=== PATIENT | female | born 1970 ===

== ENCOUNTER 2018-06-12 17:59 | Emergency (ER) | payer SELFPAY ==
--- NOTE | 2018-06-12 19:52 | C.PDOC ---
History Of Present Illness 47 y/o female presents to ED complaining of fever, chills, and productive cough x1 week. Patient states she also has occasional body aches and nasal congestion. Otherwise she denies sore throat, ear pain, abdominal pain, nausea, vomiting, diarrhea, dysuria, or sick contacts. Time Seen by Provider: 06/12/18 18:06 Chief Complaint (Nursing): Cough, Cold, Congestion History Per: Patient History/Exam Limitations: no limitations Onset/Duration Of Symptoms: Days Current Symptoms Are (Timing): Still Present Past Medical History Reviewed: Historical Data, Nursing Documentation, Vital Signs Vital Signs: Last Vital Signs Temp 102.6 F H 06/12/18 18:11 Pulse 112 H 06/12/18 18:11 Resp 18 06/12/18 18:11 BP 123/76 06/12/18 18:11 Pulse Ox 97 06/12/18 18:11 Family History: States: No Known Family Hx - Social History Hx Alcohol Use: No Hx Substance Use: No - Immunization History Hx Tetanus Toxoid Vaccination: No Hx Influenza Vaccination: No Hx Pneumococcal Vaccination: No Review Of Systems Constitutional: Positive for: Fever, Chills, Other (Body aches) ENT: Positive for: Nose Congestion. Negative for: Ear Pain, Throat Pain Respiratory: Positive for: Cough (productive) Gastrointestinal: Negative for: Nausea, Vomiting, Abdominal Pain, Diarrhea Genitourinary: Negative for: Dysuria Physical Exam - Physical Exam Appears: Non-toxic, Other (Uncomfortable) Skin: Warm, Dry Head: Atraumatic, Normacephalic Eye(s): bilateral: Normal Inspection Ear(s): Bilateral: Normal Oral Mucosa: Moist Throat: Normal, No Erythema, No Exudate Neck: Supple Chest: Symmetrical Cardiovascular: Rhythm Regular (tachycardic), No Murmur Respiratory: Normal Breath Sounds, No Rales, No Rhonchi, No Wheezing, Other (Coughs occasionally) Gastrointestinal/Abdominal: Soft, No Tenderness Extremity: Bilateral: Atraumatic, Normal ROM ED Course And Treatment O2 Sat by Pulse Oximetry: 97 (RA) Pulse Ox Interpretation: Normal Progress Note: Urine POC and chest x-ray ordered. Patient was given motrin and was swabbed for flu that was negative. CXR showed infiltrate on right base, so gave her doryx. Patient will be discharged home and was instructed to follow up with her PMD in 1-2 days for further evaluation. Disposition Counseled Patient/Family Regarding: Studies Performed, Diagnosis, Need For Followup, Rx Given - Disposition Referrals: [facility] [Outside] Disposition: HOME/ ROUTINE Disposition Time: 19:50 Condition: STABLE Additional Instructions: FOLLOW UP WITH YOUR DOCTOR/CLINIC IN 1-2 DAYS USE MEDICATIONS DIRECTED DRINK PLENTY OF FLUIDS AND GET REST RETURN TO ER IF YOUR SYMPTOMS BECOME WORSE SEGUIR CON ONEILL MDICO / CLNICA EN 1-2 LOZOYA UTILICE MEDICAMENTOS EAGLE SE DIRIGE JUANA MUCHOS FLUIDOS Y DESCANSE REGRESE A ER SI VICTOR HUGO SNTOMAS SE HACEN PEOR Prescriptions: Benzonatate [Tessalon Perles] 100 mg PO BID PRN #15 sgl PRN Reason: Cough Doxycycline Monohydrate 100 mg PO BID #14 tablet Ibuprofen [Motrin Tab] 600 mg PO Q6 PRN #30 tab PRN Reason: fever/pain Instructions: Community-Acquired Pneumonia, Adult (DC) Forms: [employer] (Turkmen), Work Excuse Print Language: TUVALUAN - Clinical Impression Clinical Impression: Pneumonia - Scribe Statement The provider has reviewed the documentation as recorded by the Raoul Guaman Provider Attestation: All medical record entries made by the Mariyaibstanley were at my direction and personally dictated by me. I have reviewed the chart and agree that the record accurately reflects my personal performance of the history, physical exam, medical decision making, and the department course for this patient. I have also personally directed, reviewed, and agree with the discharge instructions and disposition.
[2018-06-12 19:59] VITALS: BP 119/79; PULSE 89; RESP 16; TEMP 99.4
[2018-06-12 21:36] VITALS: O2SAT 97
--- NOTE | 2018-06-13 10:16 | RAD ---
Date of service: 06/12/2018 HISTORY: cough, fever COMPARISON: No prior. TECHNIQUE: Chest PA and lateral FINDINGS: LUNGS: Patchy infiltrate is seen in the right lower lobe PLEURA: No significant pleural effusion identified. No pneumothorax apparent. CARDIOVASCULAR: No aortic atherosclerotic calcification present. Normal cardiac size. No pulmonary vascular congestion. OSSEOUS STRUCTURES: No significant abnormalities. VISUALIZED UPPER ABDOMEN: Normal. OTHER FINDINGS: None. IMPRESSION: Right lower lobe pneumonia
== END 2018-06-12 19:59 | disposition home or self-care (01) ==
LOC: C.ER 17:59
DX: J18.9 Pneumonia, unspecified organism (principal)